=== PATIENT | male | born 1950 | race Caucasian/White ===

== ENCOUNTER 2023-08-05 12:44 | Emergency (ER) | payer MEDICARE ==
[~2023-08-05] VITALS: Ht 177.8 cm; Wt 76.2 kg
[2023-08-05] MEDS ORDERED: IV NS 0.9% 1,000 ML BAG IV ONE (13:00)
[2023-08-05] MEDS ORDERED: LORAZEPAM INJ 2 MG/ML VIAL IV ONE (13:00)
[2023-08-05] MEDS ORDERED: LORAZEPAM INJ 2 MG/ML VIAL ONE (13:24)
[2023-08-05 13:44] LABS: BASOPHILS % (AUTO) 0.1 % (0.0-2.0); HEMATOCRIT 53 % (39-51); HEMOGLOBIN 18.4 g/dL (13.5-17.5); LYMPHOCYTES # (AUTO) 0.2 K/uL (0.8-4.8); LYMPHOCYTES % (AUTO) 1.8 % (20.0-44.0); MEAN CORPUSCULAR HEMOGLOBIN 34 PG (26.0-33.0); MEAN CORPUSCULAR HGB CONC 35 g/dl (31.0-36.0); MEAN CORPUSCULAR VOLUME 97 fL (80-96); MONOCYTES # (AUTO) 0.4 K/uL (0.1-1.30); MONOCYTES % (AUTO) 4.3 % (2.0-12.0); NEUTROPHILS # (AUTO) 9.3 K/uL (1.8-8.9); NEUTROPHILS % (AUTO) 93.8 % (43.0-81.0); PLATELET COUNT (AUTO) 117 K/uL (150-450); RED BLOOD CELL COUNT(AUTO) 5.46 MIL/uL (4.5-6.0); RED CELL DISTRIBUTION WIDTH 12.8 % (11.5-15.0); WHITE BLOOD COUNT (AUTO) 9.9 K/uL (4.3-11.0)
[2023-08-05 14:03] LABS: ALCOHOL, BLOOD < 3 mg/dL (0-10)
[2023-08-05 14:13] LABS: ALANINE AMINOTRANSFERASE 27 U/L (12-78); ALBUMIN 3.6 g/dL (3.4-5.0); ALKALINE PHOSPHATASE 88 U/L (46-116); ASPARTATE AMINOTRANSFERASE 29 U/L (15-37); BILIRUBIN,DIRECT 0.2 mg/dL (0.0-0.2); BILIRUBIN,TOTAL 1.3 mg/dL (0.2-1.0); CALCIUM, SERUM 8.6 mg/dL (8.5-10.1); CARBON DIOXIDE 25 mmol/L (21-32); CHLORIDE 99 mmol/L (98-107); CREATININE 0.8 mg/dL (0.6-1.3); GLUCOSE 150 mg/dL (74-106); NT-PRO BNP 353 pg/mL (0-125); POTASSIUM 3.6 mmol/L (3.5-5.1); SODIUM SERUM 135 mmol/L (136-145); TOTAL PROTEIN, SERUM 7.8 g/dL (6.4-8.2); UREA NITROGEN, BLOOD 24 mg/dL (7-18)
[2023-08-05 14:18] LABS: THYROID STIMULATING HORMONE 0.675 uIU/mL (0.358-3.74)
[2023-08-05 15:41] VITALS: BP 137/79; TEMP 98; O2SAT 97
== END 2023-08-05 15:41 | disposition home or self-care (01) ==
LOC: ER 12:44
DX: R00.2 Palpitations (principal); F41.9 Anxiety disorder, unspecified; I25.2 Old myocardial infarction; Z88.8 Allergy status to other drugs, medicaments and biological substances
CPT/HCPCS: 99285; 96374; 96361; 93005; 71045; 85025; 80048; 80076; 36415; 84443; 84484; 83880; 82962; 80320; J2060; J7030; G0480